=== PATIENT | male | born 1980 | race Caucasian/White ===

== ENCOUNTER 2020-07-27 11:07 | Outpatient (REF) | payer OTHER, SELFPAY | END 2020-07-27 11:08 | disposition home or self-care (01) | LOC: HO.LAB 11:07 | PROVIDERS: Visit Provider Nurse Practitioner Family | DX: K12.2 Cellulitis and abscess of mouth (principal); Z20.822 Contact with and (suspected) exposure to COVID-19; B35.4 Tinea corporis | CPT/HCPCS: 36415; U0003 ==

== ENCOUNTER 2020-09-05 10:35 | Outpatient (REF) | payer OTHER, SELFPAY ==
--- NOTE | ~2020-09-05 | XR_ITS ---
EXAMINATION: XR LUMBOSACRAL SPINE CLINICAL INFORMATION: Lumbago with sciatica, unspecified side COMPARISON: None TECHNIQUE: Three views of the lumbosacral spine. FINDINGS: The vertebral bodies have normal height and alignment. The curvature of the lumbar spine is normal. Qrom-gn-eoyaevcm loss of disc space and mild osteophyte formation at L4-L5. There appears to be focal ossification along the posterior longitudinal ligament at L4-L5. Otherwise, the lumbar disc spaces are maintained. No evidence of pars interarticularis defect or vertebral compression fracture. The anterior and posterior elements are intact. No lytic or osteoblastic lesions. Sacrum and sacroiliac joints are unremarkable. XR/XR lumbar spine 2-3V IMPRESSION: * No fracture or malalignment of the lumbar spine. * Ywxy-pn-syyrrumn disc degenerative change at L4-L5.
--- NOTE | ~2020-09-05 | XR_ITS ---
EXAMINATION: XR KNEE, LEFT CLINICAL INFORMATION: Left knee pain. COMPARISON: None TECHNIQUE: Four views of the left knee. FINDINGS: No specific source of pain is detected. Bones, joints and soft tissues are unremarkable. No arthritic deformity. No knee joint effusion or focal soft tissue swelling. XR/XR knee LT 4V IMPRESSION: Normal left knee.
== END 2020-09-05 10:36 | disposition home or self-care (01) ==
LOC: HO.HMGCX 10:35
PROVIDERS: PCP Nurse Practitioner Family; Visit Provider Nurse Practitioner Family
DX: M54.40 Lumbago with sciatica, unspecified side (principal); M25.562 Pain in left knee
CPT/HCPCS: 72100; 73564

== ENCOUNTER 2021-07-17 18:51 | Outpatient (REF) | payer OTHER, SELFPAY ==
[2021-07-17 18:58] LABS: Appearance Urine CLEAR; Color Urine YELLOW; Glucose Urine UA NEG (NEG); Leukocyte Esterase Urine NEG (NEG); Nitrite Urine NEG (NEG); Urine Blood NEG (NEG); Urine Ketones NEG (NEG); Urine Protein NEG (NEG-TRACE)
== END 2021-07-17 18:52 | disposition home or self-care (01) ==
LOC: HO.LNP 18:51
PROVIDERS: Visit Provider Nurse Practitioner Family
DX: R10.9 Unspecified abdominal pain (principal)
CPT/HCPCS: 81003

== ENCOUNTER 2021-07-24 06:48 | Outpatient (REF) | payer OTHER, SELFPAY ==
[2021-07-24 11:53] LABS: Alanine Aminotransferase 35 U/L (0-40); Albumin Level 4.5 g/dL (3.5-5.0); Alkaline Phosphatase 40 U/L (39-117); Anion Gap 11 (12-20); Aspartate Amino Transferase 25 U/L (5-37); Bilirubin Total 0.6 mg/dL (0.0-1.0); Blood Urea Nitrogen 10 mg/dL (9-16); Calcium 9.7 mg/dL (8.4-10.2); Carbon Dioxide 29 mmol/L (22-29); Chloride 103 mmol/L (96-108); Cholesterol 191 mg/dL; Estimated Glomerular Filt Rate > 60; Glucose Fasting 98 mg/dL (60-99); HDL Cholesterol 56 mg/dL; LDL Cholesterol Calculated 113 mg/dl; Potassium 3.9 mmol/L (3.3-5.1); Sodium 139 mmol/L (135-145); Total Protein 7.7 g/dL (6.5-8.0); Triglycerides 112 mg/dL
[2021-07-24 12:00] LABS: TSH reflex Free T4 2.78 uIU/mL (0.32-4.0)
== END 2021-07-24 06:49 | disposition home or self-care (01) ==
LOC: HO.HMGCLDS 06:48
PROVIDERS: PCP Nurse Practitioner Family; Visit Provider Nurse Practitioner Family
DX: Z00.00 Encounter for general adult medical examination without abnormal findings (principal)
CPT/HCPCS: 36415; 80053; 80061; 84443

== ENCOUNTER 2021-09-04 11:22 | Outpatient (REF) | payer OTHER, SELFPAY ==
--- NOTE | ~2021-09-04 | US_ITS ---
EXAMINATION: US RETROPERITONEAL COMPLETE (RENAL) CLINICAL INFORMATION: Flank pain. COMPARISON: None TECHNIQUE: Real-time imaging of the kidneys and bladder. FINDINGS: RIGHT KIDNEY: 12.0 x 6.6 x 6.7 cm (SAG x AP x TRV). The kidney is normal in size, contour, and echogenicity. Renal cortical thickness is normal. There are 2 cysts measuring 1.5 x 1.2 x 1.5 cm in the midpole and 1.8 x 1.7 x 2.7 cm in the lower pole. No renal calculi or hydronephrosis. LEFT KIDNEY: 12.5 x 7.4 x 7.8 cm (SAG x AP x TRV). The kidney is normal in size, contour, and echogenicity. Renal cortical thickness is normal. There are 2 cysts measuring 1.5 x 1 x 1 cm in the midpole and 2.4 x 1.6 x 1.8 cm in the lower pole. There are 2 echogenic densities with twinkle artifact in the midpole suggestive of stones measuring 4 x 6 x 2 mm and 5 x 3 x 4 mm. No hydronephrosis. BLADDER: Well distended. No stones mass or wall thickening is seen. Bilateral ureteral jets are demonstrated. Prevoid bladder volume is 719 mL. Postvoid bladder volume is 77.8 mL. The prostate gland measures 3.1 x 5.3 x 3.6 cm, volume 31 mL. US/US retroperitoneal comp IMPRESSION: Left renal stones. Bilateral renal cysts. Slightly enlarged prostate gland. Small 78 mL post void bladder residual.
== END 2021-09-04 11:23 | disposition home or self-care (01) ==
LOC: HO.HMGCX 11:22
PROVIDERS: PCP Nurse Practitioner Family; Visit Provider Nurse Practitioner Family
DX: R10.9 Unspecified abdominal pain (principal)
CPT/HCPCS: 76770

== ENCOUNTER 2021-09-19 07:33 | Outpatient (REF) | payer OTHER, SELFPAY ==
[2021-09-19 12:37] LABS: Prostate Specific Antigen 0.69 ng/mL (<0.05-4.0)
== END 2021-09-19 07:34 | disposition home or self-care (01) ==
LOC: HO.HMGCLDS 07:33
PROVIDERS: Visit Provider Nurse Practitioner Family
DX: N40.0 Benign prostatic hyperplasia without lower urinary tract symptoms (principal); Z12.5 Encounter for screening for malignant neoplasm of prostate
CPT/HCPCS: 36415; 84153

== ENCOUNTER 2021-10-11 14:23 | Outpatient (AMB) | payer OTHER, SELFPAY ==
--- NOTE | 2021-10-11 14:27 | A.OFFVIS_ITS ---
Intake Intake Visit Reasons: BPH, Renal Cysts, Kidney Stone Intake Note: patient is present for follow up Accompanied by: Self / Same As Patient Allergies shellfish derived [SHELLFISH DERIVED] Allergy (Unknown, Verified 09/11/23 11:23) SWELLING, DIFF BREATHING bupropion [From Wellbutrin] Adverse Reaction (Severe, Verified 09/11/23 11:23) Anxiety Bee stings Allergy (Unknown, Uncoded 09/25/22 17:13) throat swelling ENVIRONMENTAL Allergy (Unknown, Uncoded 09/25/22 17:13) ASTHMA Seasonal Allergy (Unknown, Uncoded 09/25/22 17:13) unknown HPI HPI Comments History of Present Illness Details Antonio is a pleasant male. He is seen for the following urologic conditions - lower urinary tract symptoms - renal stones - renal cysts Lower urinary tract symptoms Longstanding buspirone [facility] Medical History Back pain of lumbosacral region with sciatica DDD (degenerative disc disease), lumbar Hemorrhoids that prolapse with straining and require manual replacement back inside anal canal Surgical History History of inguinal hernia repair Hx of removal of neck cyst S/P lumbar microdiscectomy Family History Father Asthma Mother Eye cancer Daughter No problems noted. Social History Housing: House Alcohol intake: current Patient Tobacco Use Status: Never used Tobacco e-Cigarette/Vaping Use: Never Used Second Hand Smoke Exposure: No service: No Current occupational status: employed Current occupation: [employer] Current occupational exposures/hazards: No Cognitive needs: No Hearing needs: No Vision needs: No Review of Systems Const Denies chills and Denies fever(s) Card Reports no additional complaints and Denies syncope Resp Denies cough GI Denies abdominal pain and Denies heartburn Reports as per HPI and Denies change in libido Neuro Denies syncope Psych Denies change in libido Endo Denies change in libido Physical Exam Const General: cooperative, healthy appearing, comfortable and no acute distress Orientation/consciousness: patient oriented x3 HEENT Face and sinus: Yes normal facial exam Mouth: moist mucous membranes Neck Neck: Yes normal visual inspection, Yes full ROM and Yes trachea midline Chest Chest palpation & inspection: normal inspection of the chest Resp Effort & Inspection: normal respiratory effort, able to speak in complete sentences and no respiratory distress GI Inspection: Yes normal to inspection Back/Spine/Pelvis Cervical Spine: normal cervical lordosis Thoracic/Lumbar Spine: thoracic and lumbar spine normal to inspection Skin General skin exam: no rashes or lesions noted Neuro General: patient oriented x3, gait normal, tone normal and moves all extremities Extrem General: Yes normal to inspection and Yes capillary refill normal Office Procedures Post Void Residual Post Residual Void Post Void Residual (PVR): 0 [id number] Void Residual by ultrasound Results AMB Urinalysis, Automated UA Leukoctes 0 Estelle/uL Last Edit by Jose Aguero on 10/11/21 14:44 UA Nitrite Negative Last Edit by Jose Aguero on 10/11/21 14:44 UA Urobilinogen 0.2 mg/dL Last Edit by Jose Aguero on 10/11/21 14:44 UA Protein 0 mg/dL Last Edit by Jose Aguero on 10/11/21 14:44 UA pH 6.0 Last Edit by Jose Aguero on 10/11/21 14:44 UA Blood 0 Dylon/uL Last Edit by Jose Aguero on 10/11/21 14:44 UA Specific [place] 1.030 Last Edit by Jose Aguero on 10/11/21 14:44 UA Ketone Negative Last Edit by Jose Aguero on 10/11/21 14:44 UA Bilirubin 0 mg/dL Last Edit by Jose Aguero on 10/11/21 14:44 UA Glucose 0 mg/dL Last Edit by Jose Aguero on 10/11/21 14:44 Results Reviewed Results Reviewed: Laboratory Last Values Urine pH (Auto) 6.0 10/11/21 14:32 Specific [place] (Auto) 1.030 10/11/21 14:32 Urine Protein (Auto) 0 mg/dL 10/11/21 14:32 Glucose (UA)(Auto) 0 mg/dL 10/11/21 14:32 Urine Ketones (Auto) Negative 10/11/21 14:32 Urine Blood (Auto) 0 Dylon/uL 10/11/21 14:32 Urine Nitrite (Auto) Negative 10/11/21 14:32 Urine Bilirubin (Auto) 0 mg/dL 10/11/21 14:32 Urine Urobilinogen (Auto) 0.2 mg/dL 10/11/21 14:32 Leukocyte Esterase (Auto) 0 Estelle/uL 10/11/21 14:32 Assessment & Plan Assessment & Plan (1) Kidney stones: Code(s): N20.0 - Calculus of kidney Plan 12m f/u Orders: Orders AMB Urinalysis Automated 10/11/21 Z13.9 - Encounter for screening, unspecified AMB Post Void Residual by ultrasound 10/11/21 N20.0 - Calculus of kidney US renal BI 1 Year N20.0 - Calculus of kidney Patient Instructions: Imaging studies, laboratory and physical exam results were discussed and reviewed in detail. No major barriers to patient understanding were identified. An opportunity to ask questions regarding the treatment plan was provided. All questions were answered. The patient expressed understanding and agreement with the above treatment plan. The patient is aware they should contact our office by phone for worsening of their current condition or the appearance of new urologic symptoms. Compliance is encouraged with any medications and followup testing that is ordered. It is a privilege to participate in the urologic care of your patient. If you have any questions or concerns regarding treatment for the above conditions, or other urologic issues, please do not hesitate to contact me. The office telephone contact is [phone]. This note is constructed using voice recognition software. While every effort has been made to ensure accuracy custom dressmaker errors may have been included. Yours sincerely, Dr Major Vanessa MD, [facility] - Urology Providers of Expert, Compassionate Care for the Genitourinary System Coding Level of Care Code Est Pt Level 3 (82623) Diagnoses Kidney stones N20.0 CPT Codes Post Residual Void - PVR CPT Code: 98084-Lrka Void Residual by ultrasound ([id number])
== END 2021-10-11 15:28 | disposition home or self-care (01) ==
PROVIDERS: PCP Nurse Practitioner Family; Visit Provider Urology
DX: N20.0 Calculus of kidney (principal)
CPT/HCPCS: 99499

== ENCOUNTER → 2021-10-11 14:23 | Outpatient (BNVA) | payer OTHER, SELFPAY | PROVIDERS: PCP Internal Medicine; Visit Provider Urology | DX: Z13.89 Encounter for screening for other disorder (principal) | CPT/HCPCS: 51798 ==

== ENCOUNTER 2021-10-24 09:19 | Outpatient (REF) | payer OTHER, SELFPAY ==
--- NOTE | ~2021-10-24 | XR_ITS ---
EXAMINATION: XR CHEST CLINICAL INFORMATION: Localized swelling, mass and lump of the trunk COMPARISON: Previous chest CT November 2013 TECHNIQUE: 2 views of the chest were obtained. FINDINGS: The cardiac and mediastinal contours are stable. There is a 4 mm nodule at the left lung base in the lateral costophrenic sulcus. When compared with previous CT this is probably stable. The lungs are otherwise clear. There is no pleural effusion or pneumothorax. The lungs are otherwise clear. There is no pleural effusion or pneumothorax. Bony structures are unremarkable. XR/XR chest 2V IMPRESSION: No evidence for acute disease in the chest. 4 mm left base pulmonary nodule probably unchanged from previous chest CT.
== END 2021-10-24 09:20 | disposition home or self-care (01) ==
LOC: HO.HMGCX 09:19
PROVIDERS: Visit Provider Internal Medicine
DX: R22.2 Localized swelling, mass and lump, trunk (principal); K64.9 Unspecified hemorrhoids
CPT/HCPCS: 71046

== ENCOUNTER → 2021-11-27 10:53 | Outpatient (BNVA) | payer OTHER, SELFPAY | PROVIDERS: PCP Nurse Practitioner Family; Referring Provider Internal Medicine; Visit Provider Surgery | DX: K64.4 Residual hemorrhoidal skin tags (principal); K64.8 Other hemorrhoids | CPT/HCPCS: 46600 ==

== ENCOUNTER 2022-01-10 09:09 | Emergency (ER) | payer OTHER, SELFPAY ==
--- NOTE | ~2022-01-10 | XR_ITS ---
EXAMINATION: XR LUMBOSACRAL SPINE CLINICAL INFORMATION: Low back pain status post fall. COMPARISON: 09/05/2020 lumbar spine radiographs. TECHNIQUE: Three views of the lumbosacral spine. FINDINGS: There is normal lumbar lordosis and spinal alignment. Mild degenerative disc disease is seen at L4-L5 and L5-S1. The vertebral bodies are intact. The soft tissues are unremarkable. XR/XR lumbar spine 2-3V IMPRESSION: L4-L5 and L5-S1 mild degenerative disc disease. No acute abnormality or significant change.
[2022-01-10 09:34] VITALS: BP 147/95; PULSE 88; RESP 18; TEMP 36.3; O2SAT 98; BMI 33.0
--- NOTE | 2022-01-10 10:34 | ED_ITS ---
HPI - Fall General Chief Complaint: Fall Stated Complaint: Back & R Hip Injury at Work 01/10/22 Time Seen by Provider: 01/10/22 10:33 Source: patient Mode of arrival: ambulatory Limitations: no limitations History of Present Illness HPI Narrative: 41 yo male healthy here with reports of lower back pain after a mechanical fall today while working. Patient tells me he slipped and fall landing on his lower back and right buttocks. Since then he has had pain which radiates down the right leg. There is some intermittent numbness and tingling. He denies any weakness, fevers, chills, saddle anesthesia, bowel or bladder incontinence. Related Data Home Medications Medication Instructions Recorded Confirmed albuterol sulfate 90 mcg/actuation 2 puff inhalation Q4-6H PRN 08/23/20 12/05/21 aerosol inhaler (ProAir HFA) cetirizine 10 mg tablet (Zyrtec) 20 mg PO DAILY PRN 08/23/20 12/05/21 Previous Rx's Medication Instructions Recorded cyclobenzaprine 10 mg tablet 10 mg PO BEDTIME PRN muscle spasm 08/23/20 30 days #30 tabs lisinopril 10 mg tablet 10 mg PO DAILY #30 tabs 10/09/21 diclofenac sodium 75 mg 75 mg PO BID PRN pain 30 days #60 11/26/21 tablet,delayed release tabs citalopram 20 mg tablet 20 mg PO DAILY 30 days #30 tabs 12/05/21 buspirone 7.5 mg tablet 7.5 mg PO BID 30 days #60 tabs 12/31/21 cyclobenzaprine 10 mg tablet 10 mg PO TID PRN muscle spasm #14 01/10/22 tabs lidocaine 5 % topical patch 1 patch topical DAILY #15 ea 01/10/22 (Lidoderm) naproxen 500 mg tablet 500 mg PO BID PRN pain #20 tabs 01/10/22 Allergies Allergy/AdvReac Type Severity Reaction Status Date / Time shellfish derived Allergy Unknown SWELLING, Verified 12/05/21 11:53 [SHELLFISH DERIVED] DIFF BREATHING bupropion [From Wellbutrin] AdvReac Severe Anxiety Verified 12/05/21 11:53 Bee stings Allergy Unknown throat Uncoded 12/05/21 11:53 swelling ENVIRONMENTAL Allergy Unknown ASTHMA Uncoded 12/05/21 11:53 Seasonal Allergy Unknown unknown Uncoded 12/05/21 11:53 Review of Systems Review of Systems: Yes all other systems are reviewed and are negative Constitutional: Constitutional: Reports no additional constitutional complaints, Denies body ache(s), Denies chills, Denies fever(s), Denies headache(s) and Denies weakness Eyes: Eyes: Reports no additional eye complaints and Denies change in vision ENT: Reports system reviewed and no additional complaints, except as documented, Denies dizziness, Denies headache(s), Denies nasal congestion, Denies nasal discharge and Denies neck pain Cardiovascular: Cardiovascular: Reports no additional cardiovascular compl aints, Denies chest pain, Denies leg edema and Denies dyspnea Respiratory: Respiratory: Reports no additional respiratory complaints, Denies cough and Denies dyspnea Gastrointestinal: Gastrointestinal: Reports no additional gastrointestinal complaints, Denies abdominal pain, Denies diarrhea, Denies nausea and Denies vomiting Genitourinary: Genitourinary: Denies urinary incontinence Musculoskeletal: Musculoskeletal: Reports no additional musculoskeletal complaints, Reports back pain, Denies arthralgias, Denies joint swelling, Denies neck pain, Reports numbness, Reports radiating pain into limb and Reports tingling Integumentary/Breasts: Skin/Breast: Reports system reviewed and no additional complaints, except as docu and Denies rash Neurologic: Reports system reviewed and no additional complaints, except as documented, Denies Abnormal speech present, Denies dizziness, Denies headache(s), Reports numbness, Reports tingling and Denies weakness PMFSH Past Medical History Attestation statement: The following information was validated with the patient. Source: old records reviewed and nursing notes reviewed Medical History DDD (degenerative disc disease), lumbar Surgical History History of inguinal hernia repair Hx of removal of neck cyst Family History Family History Father Asthma Mother Eye cancer Daughter No problems noted. Social History Social History Housing: House Alcohol intake: current Patient Tobacco Use Status: Never used Tobacco e-Cigarette/Vaping Use: Never Used Second Hand Smoke Exposure: No Advance Directives: No Advance Directives Information Provided: Yes service: No Current occupational status: employed Current occupation: [employer] Current occupational exposures/hazards: No Cognitive needs: No Hearing needs: No Vision needs: No Physical Exam Vital Signs: Vital Signs: Last Vital Signs Temp 97.4 F 01/10/22 09:34 Pulse 88 01/10/22 09:34 Resp 18 01/10/22 09:34 BP 147/95 H 01/10/22 09:34 Pulse Ox 98 01/10/22 09:34 O2 Del Method 01/10/22 09:34 BMI result Body Mass Index 33.0 Const: General: cooperative, healthy appearing, comfortable and no acute distress Orientation/consciousness: patient oriented x3 Limitations: no limitations HEENT: Head: Yes normal to inspection Ears: hearing grossly normal bilaterally General nose exam: Normal external nose present Face and sinus: Yes normal facial exam Mouth: Normal oral and palatal mucosa present Throat: Yes posterior oropharynx normal Eyes: General: appearance normal, both eyes and all related structures Pupils: Equal, round and reactive pupils present Neck: Neck: Yes normal visual inspection Chest: Chest palpation & inspection: normal inspection of the chest Resp: Effort & Inspection: normal respiratory effort Auscultation: clear to auscultation bilaterally Cardio: Rate: regular rate Rhythm: regular rhythm Peripheral pulses: Peripheral pulses 2+ throughout GI: Inspection: Yes normal to inspection Palpation (GI): Soft to palpation and nontender Auscultation: normal bowel sounds Back/Spine/Pelvis: Other: There is tenderness to the midline lumbar spine with no step-offs or deformities. Thoracic/Lumbar Spine: thoracic and lumbar spine normal to inspection Skin: General skin exam: no rashes or lesions noted Neuro: General: patient oriented x3, no focal motor deficits and normal sensation to monofilament Cranial nerves: Yes CN's II-XII intact bilaterally, Yes Equal, round and reactive pupils present, Yes Bilaterally intact EOM present, Yes Nystagmus not present, Yes Normal facial strength present and Yes Midline tongue present Cognition (Neuro): normal cognition Speech: No Abnormal speech present Gait exam (Neuro): Normal gait present Motor exam (neuro): 5/5 motor strength present throughout Sensory Exam: Normal double simultaneous stimulation for sensation Deep tendon reflexes (DTR's): Right patellar reflex intensity grade: 2+ and Left patellar reflex intensity grade: 2+ Extrem: General: Yes normal to inspection Course Course Course Narrative: X-ray show mild degenerative changes. Patient referred to were connection to follow-up. Recommend NSAID, low-dose muscle relaxant, medicated patches. Recommended no heavy lifting or bending. Patient should follow-up for further evaluation and possible imaging. He should return here for any incontinence, weakness, saddle anesthesia. Reviewed worrisome signs and symptoms of when to return to the emergency department. Comfortable discharge home. MDM - Fall MDM Narrative Medical decision making narrative: 41-year-old male here with reports of low back pain after mechanical fall at work with radiation down the right lower leg with some intermittent numbness and tingling. Normal neuro exam. Will check x-rays Medical Records Attestation: I reviewed the patient's medical records. Lab Data Attestation: I reviewed the patient's lab results. Imaging Data lumbar x-ray: Attestation: I personally reviewed and interpreted this imaging study as follows: Radiologist's impression: FINDINGS: There is normal lumbar lordosis and spinal alignment. Mild degenerative disc disease is seen at L4-L5 and L5-S1. The vertebral bodies are intact. The soft tissues are unremarkable. XR/XR lumbar spine 2-3V IMPRESSION: L4-L5 and L5-S1 mild degenerative disc disease. No acute abnormality or significant change. Discharge Plan Discharge Clinical Impression: Lumbar strain, Acute lumbar radiculopathy Patient Disposition: Home, Self-Care Instructions: Acute Low Back Pain (ED), Lumbar Radiculopathy (ED) Additional Instructions: Heat or ice Gentle stretching No heavy lifting or bending Follow-up with work connection of [id number] Prescriptions: New cyclobenzaprine 10 mg tablet 10 mg PO TID PRN (Reason: muscle spasm) Qty: 14 0RF naproxen 500 mg tablet 500 mg PO BID PRN (Reason: pain) Qty: 20 0RF lidocaine [Lidoderm] 5 % adhesive patch,medicated 1 patch topical DAILY Qty: 15 0RF Rx Instructions: leave on most painful area for up to 12 hrs No Action lisinopril 10 mg tablet 10 mg PO DAILY Qty: 30 4RF diclofenac sodium 75 mg tablet,delayed release (DR/EC) 75 mg PO BID PRN (Reason: pain) 30 Days Qty: 60 2RF buspirone 7.5 mg tablet 7.5 mg PO BID 30 Days Qty: 60 2RF cetirizine [Zyrtec] 10 mg tablet 20 mg PO DAILY PRN albuterol sulfate [ProAir HFA] 90 mcg/actuation HFA aerosol inhaler 2 puff inhalation Q4-6H PRN cyclobenzaprine 10 mg tablet 10 mg PO BEDTIME PRN (Reason: muscle spasm) 30 Days Qty: 30 0RF citalopram 20 mg tablet 20 mg PO DAILY 30 Days Qty: 30 2RF Referrals: Rome Morrell, DAMAGE PREVENTION COORDINATOR-BC [Primary Care Provider] - Stand Alone Forms: Work/School Release Interventions: ED Discharge Assessment Last Done: 01/10/22 11:00 Discharge Date/Time: 01/10/22 11:01
== END 2022-01-10 11:01 | disposition home or self-care (01) ==
PROVIDERS: Emergency Provider Emergency Medicine; PCP Nurse Practitioner Family
DX: S39.012A Strain of muscle, fascia and tendon of lower back, initial encounter (principal); M54.16 Radiculopathy, lumbar region; W01.0XXA Fall on same level from slipping, tripping and stumbling without subsequent striking against object, initial encounter; Y93.9 Activity, unspecified; Y92.9 Unspecified place or not applicable; Y99.0 Civilian activity done for income or pay; Z79.899 Other long term (current) drug therapy
CPT/HCPCS: 72100; 99283

== ENCOUNTER → 2022-01-11 10:40 | Outpatient (BNVA) | payer OTHER, SELFPAY | PROVIDERS: PCP Nurse Practitioner Family; Visit Provider Physician Assistant Medical | DX: M54.31 Sciatica, right side (principal); M51.27 Other intervertebral disc displacement, lumbosacral region | CPT/HCPCS: 99203 ==

== ENCOUNTER → 2022-01-15 11:12 | Outpatient (BNVA) | payer OTHER, SELFPAY | PROVIDERS: PCP Nurse Practitioner Family; Visit Provider Internal Medicine | DX: S46.912A Strain of unspecified muscle, fascia and tendon at shoulder and upper arm level, left arm, initial encounter (principal); S29.011A Strain of muscle and tendon of front wall of thorax, initial encounter; W17.89XA Other fall from one level to another, initial encounter; M54.31 Sciatica, right side | CPT/HCPCS: 99214 ==

== ENCOUNTER 2022-01-18 18:16 | Outpatient (REF) | payer OTHER, SELFPAY ==
--- NOTE | ~2022-01-18 | MR_ITS ---
EXAMINATION: MR LUMBAR SPINE WITHOUT CONTRAST CLINICAL INFORMATION: 41-year-old with complaints of low back pain radiating to the right leg, with numbness. History of fall from ladder. COMPARISON: 01/10/2022 x-rays. TECHNIQUE: MRI of the lumbar spine was obtained using routine sequences without contrast. FINDINGS: Coronal Alignment: Normal. Sagittal Alignment: Normal. Lumbosacral Junction: Normal. Five nonrib-bearing lumbar-type vertebral bodies. Vertebral Bodies: Very slight loss of height involving the anterior margins of the T11 and T12 vertebral bodies with otherwise normal vertebral body heights throughout the lumbar spine. No associated kyphosis. Disc Spaces and Endplates: Moderate disc space height loss and disc desiccation at L4-L5 and [id number] disc space height loss with disc desiccation at L5-S1. Remaining lumbar intervertebral discs demonstrate normal height and signal. Small Schmorl's nodes are seen at the levels between T10-T11 and L1-L2 inclusive. Spinal Canal: No abnormal developmental findings. Bone Marrow: No significant marrow-replacing process or bone marrow edema aside from minimal type I edematous degenerative endplate changes at L5-S1. Conus Medullaris: Terminates at L1-L2. Morphology and signal is normal. Intradural Nerve Roots: Within normal limits. L5-S1: There is a central to right subarticular extruded disc herniation with mass effect on the right side of the dural sac and effacement of the right subarticular zone exerting mass effect upon and posterior displacement of the traversing right S1 nerve root. This measures 1.4 cm greatest craniocaudal dimension with maximum transverse dimension at the base of 1.5 cm. Maximum AP dimension is 0.9 cm. There is associated moderate central canal compromise and severe right subarticular recess compromise. There is mild right-sided facet arthrosis. Mild bilateral neural foraminal stenosis is noted without definite exiting neural impingement. L4-L5: There is a central extruded disc herniation with slight caudal migration with minimal indentation of the ventral thecal sac centrally without definite neural impingement. Disc herniation probably contacts the origin of the left L5 nerve root sleeve. No significant canal stenosis. No significant facet arthrosis or neural foraminal stenosis. The remaining lumbar levels demonstrate no significant disc bulge or herniation and no significant facet arthrosis, canal or neural foraminal stenosis. Note is made of a right paramedian disc herniation at T12-L1 without spinal cord impingement. Paraspinal/Retroperitoneal: The paravertebral soft tissues appear grossly unremarkable. There are multiple cystic structures arising in both kidneys, which were identified on ultrasound of 09/05/2021 with the largest of these on the left at 2.2 cm without significant increase in size and on the right at 2.7 cm without significant increase in size. MR/MR lumbar spine wo con IMPRESSION: 1. Discogenic degenerative changes at L4-L5 and L5-S1, as discussed above, with a large central to right subarticular extruded disc herniation at L5-S1 impinging on the traversing right S1 nerve root and exerting mass effect on the dural sac asymmetric to the right, as described above. Small central extruded disc herniation at L4-L5 noted. 2. Mild facet arthrosis on the right at L5-S1 with mild bilateral neural foraminal stenosis at this level without exiting neural impingement. 3. Small right paramedian disc herniation at T12-L1 without cord impingement. 4. Multilevel thoracolumbar Schmorl's nodes with minimal anterior wedging of the T11 and T12 vertebral bodies, which are findings that can be associated with Scheuermann's disease, but there is no associated thoracolumbar kyphosis. 5. Multiple bilateral renal cysts which were identified on previous ultrasound of 09/05/2021, as described above.
== END 2022-01-18 18:17 | disposition home or self-care (01) ==
LOC: HO.MRI 18:16
PROVIDERS: Visit Provider Internal Medicine
DX: M54.50 Low back pain, unspecified (principal); R20.0 Anesthesia of skin; Z91.81 History of falling
CPT/HCPCS: 72148

== ENCOUNTER → 2022-01-23 15:24 | Outpatient (BNVA) | payer OTHER, SELFPAY | PROVIDERS: PCP Nurse Practitioner Family; Visit Provider Internal Medicine | DX: M51.27 Other intervertebral disc displacement, lumbosacral region (principal) | CPT/HCPCS: 99213 ==

== ENCOUNTER → 2022-01-29 07:57 | Outpatient (BNVA) | payer OTHER, SELFPAY | PROVIDERS: PCP Nurse Practitioner Family; Visit Provider Internal Medicine | DX: M54.41 Lumbago with sciatica, right side (principal); M51.27 Other intervertebral disc displacement, lumbosacral region | CPT/HCPCS: 99213 ==

== ENCOUNTER → 2022-02-05 07:59 | Outpatient (BNVA) | payer OTHER, SELFPAY | PROVIDERS: PCP Nurse Practitioner Family; Visit Provider Internal Medicine | DX: M54.41 Lumbago with sciatica, right side (principal); M51.27 Other intervertebral disc displacement, lumbosacral region | CPT/HCPCS: 99213 ==

== ENCOUNTER 2022-02-09 11:00 | Outpatient (RCR) | payer OTHER, SELFPAY ==
--- NOTE | 2022-01-18 09:26 | MHC.PT.EP ---
[facility] Office [place] Office [employer] Office [address] Zechariah Baum [address] [phone] F: [phone] F: [phone] F: [phone] F: [phone] Physical Therapy Plan of Care Date of Evaluation: Date of Surgery: n/a Diagnosis: Low back pain, R sided Sciatica Assessment: Patient is a 41 year old R handed male who presents with s/s consistent with low back pain, R sided sciatica. He works with daily job demands including [employer]. Patient past medical history is fairly unremarkable but does include some low back pain. Current impairments include pain, posture, ROM, strength, activity tolerance and functional mobility. Functional limitations include decreased ability to sit, transfer, sleep, bend, squat and dress. Patient is motivated with good rehab potential. Skilled PT will address impairments and functional limitations in order to achieve goals. Frequency and Duration: The patient will be seen 2x/week for 5 weeks Short Term Goals: I with HEP - 2 weeks centralized s/s - 2 weeks Demo understanding of centralization - 2 weeks Survey Research Teacher Goals: Max pain - 2/10 with all daily activities - 5 weeks restore full rotation - 5 weeks return to all previous activities - 5 weeks Treatment Plan: Modalities to reduce pain, spasms and effusion. Manual therapy to restore motion and function. Therapeutic exercise to improve strength and flexibility. Neuromuscular re-education for posture and balance. Therapeutic activities to return to functional activities of daily living. Electronically signed by: Justin Fernandez, PT Please sign and return to therapist. Thank you for your referral.
--- NOTE | 2022-04-12 11:35 | MHC.PT.DC ---
[facility] [place] [facility] [place] [facility] [place] Office [address] Zechariah Baum [address] [phone] F: [phone] F: [phone] F: [phone] F: [phone] Physical Therapy Discharge Report Diagnosis: Low back pain, R sided Sciatica Date of Surgery: n/a Date of Evaluation: 01/18/22 Date of Discharge: 04/07/22 Treatments to Date: 6 Cancellations to Date: No Shows to Date: Discharge Status: Recommend MD Follow-up Discharge Summary: Pt did report peripheralization of s/s after traction, 2 hours after last visit with 2 days of lost sleep. we discussed plan and decided to hold on PT until follow up with MD next week. Electronically signed by: Justin Fernandez, PT Please sign and return to therapist. Thank you for your referral.
== END 2022-04-12 11:35 | disposition home or self-care (01) ==
LOC: HO.PTCHIC 11:00
PROVIDERS: PCP Nurse Practitioner Family; Visit Provider Internal Medicine
DX: M54.32 Sciatica, left side (principal); M54.31 Sciatica, right side; R07.89 Other chest pain; M54.50 Low back pain, unspecified; W19.XXXD Unspecified fall, subsequent encounter
CPT/HCPCS: 97012; 97014; 97110; 97140; 97162

== ENCOUNTER → 2022-02-12 07:58 | Outpatient (BNVA) | payer OTHER, SELFPAY | PROVIDERS: PCP Nurse Practitioner Family; Visit Provider Internal Medicine | DX: M51.17 Intervertebral disc disorders with radiculopathy, lumbosacral region (principal) | CPT/HCPCS: 99213 ==

== ENCOUNTER 2022-09-19 15:30 | Outpatient (REF) | payer OTHER, SELFPAY ==
--- NOTE | ~2022-09-19 | US_ITS ---
EXAMINATION: US RETROPERITONEAL LIMITED (RENAL ONLY) CLINICAL INFORMATION: Calculus of kidney. COMPARISON: Ultrasound kidneys and bladder 09/04/2021. TECHNIQUE: Real-time imaging of the kidneys. FINDINGS: RIGHT KIDNEY: 11.6 x 7.0 x 6.1 cm (SAG x AP x TRV). The kidney is normal in size, contour, and echogenicity. Renal cortical thickness is normal. No renal calculi or hydronephrosis. At the interpolar aspect, a 1.3 cm in maximal diameter anechoic, simple cyst is seen. At the lower pole, a 2.1 cm in maximal diameter anechoic, simple cyst is seen. LEFT KIDNEY: 11.7 x 6.4 x 5.4 cm (SAG x AP x TRV). The kidney is normal in size, contour, and echogenicity. Renal cortical thickness is normal. No hydronephrosis. At the interpolar aspect, a 4 mm nonobstructing calculus is seen, with twinkle artifact. At the interpolar aspect, a 1.3 cm in maximal diameter anechoic, simple cyst is seen. At the lower pole, a 2.5 cm in maximal diameter anechoic, simple cyst is seen. US/US renal BI IMPRESSION: 1. A 4 mm nonobstructing left renal calculus is seen. No right renal calculus is seen. No hydronephrosis is noted bilaterally. 2. There are benign, simple bilateral renal cysts.
== END 2022-09-19 15:31 | disposition home or self-care (01) ==
LOC: HO.HMGCX 15:30
PROVIDERS: PCP Nurse Practitioner Family; Visit Provider Urology
DX: N20.0 Calculus of kidney (principal)
CPT/HCPCS: 76775

== ENCOUNTER → 2022-10-02 13:01 | Outpatient (BNVA) | payer OTHER, SELFPAY | PROVIDERS: PCP Nurse Practitioner Family; Visit Provider Nurse Practitioner Family | DX: Z13.89 Encounter for screening for other disorder (principal) ==

== ENCOUNTER → 2022-10-17 13:02 | Outpatient (REF) | payer OTHER, SELFPAY | LOC: HO.SL 13:02 | PROVIDERS: PCP Nurse Practitioner Family; Visit Provider Nurse Practitioner Family | DX: R40.0 Somnolence (principal); G47.30 Sleep apnea, unspecified; R06.83 Snoring; G47.33 Obstructive sleep apnea (adult) (pediatric) | CPT/HCPCS: 95806 ==

== ENCOUNTER → 2022-11-19 19:30 | Outpatient (REF) | payer OTHER, SELFPAY | LOC: HO.SL 19:30 | PROVIDERS: PCP Nurse Practitioner Family; Visit Provider Nurse Practitioner Family | DX: G47.33 Obstructive sleep apnea (adult) (pediatric) (principal) | CPT/HCPCS: 95811 ==

== ENCOUNTER 2023-06-20 06:13 | Outpatient (REF) | payer OTHER, SELFPAY ==
[2023-06-20 11:50] LABS: MANUAL DIFF FLAG NO
[2023-06-20 12:08] LABS: Basophils Absolute Auto 0.1 X10*3/uL (0.0-0.2); Eosinophils Absolute Auto 0.4 X10*3/uL (0.0-0.4); Hematocrit 44.2 % (42.0-52.0); Hemoglobin 14.7 g/dl (14.0-18.0); Imm Gran Abs Auto 0.04 X10*3/uL (0.00-0.03); Imm Gran Pct Auto 0.5 % (0.0-0.4); Lymphocytes Absolute Auto 1.7 X10*3/uL (1.2-4.9); Lymphocytes Percent Auto 20.5 % (20-40); Mean Corpuscular HGB Conc 33.3 g/dl (31.0-36.0); Mean Corpuscular Hemoglobin 32.5 pg (27.0-33.0); Mean Corpuscular Volume 97.8 fL (80.0-98.0); Monocytes Absolute Auto 0.8 X10*3/uL (0.1-1.2); Monocytes Percent Auto 9.8 % (2-11); Neutrophils Absolute Auto 5.1 x10*3/uL (2.0-8.3); Neutrophils Percent Auto 63.2 % (45-73); Platelet Count 281 X10*3/uL (160-400); Red Blood Count 4.52 X10*6/uL (4.60-5.80); Red Cell Distribution Width 12.2 % (11.0-16.0)
[2023-06-20 12:34] LABS: Alanine Aminotransferase 35 U/L (0-40); Albumin Level 4.1 g/dL (3.5-5.0); Alkaline Phosphatase 42 U/L (39-117); Anion Gap 13 (12-20); Aspartate Amino Transferase 27 U/L (5-37); Bilirubin Total 0.6 mg/dL (0.0-1.0); Blood Urea Nitrogen 18 mg/dL (9-16); Calcium 9.2 mg/dL (8.4-10.2); Carbon Dioxide 25 mmol/L (22-29); Chloride 103 mmol/L (96-108); Cholesterol 191 mg/dL (<200); Estimated Glomerular Filt Rate > 60; Glucose Fasting 112 mg/dL (60-99); HDL Cholesterol 54 mg/dL (>40); LDL Cholesterol Calculated 99 mg/dL (<100); Potassium 3.7 mmol/L (3.3-5.1); Sodium 137 mmol/L (135-145); Total Protein 7.6 g/dL (6.5-8.0); Triglycerides 190 mg/dL (<150)
[2023-06-20 12:54] LABS: TSH reflex Free T4 2.66 uIU/mL (0.32-4.0)
[2023-06-20 13:27] LABS: Appearance Urine Clear; Color Urine Yellow; Glucose Urine UA Negative (Negative); Leukocyte Esterase Urine Negative (Negative); Nitrite Urine Negative (Negative); PH 7.5 (5.0-9.0); Specific Gravity - Urine 1.025 (1.005-1.025); Urine Blood Negative (Negative); Urine Ketones Negative (Negative); Urine Protein Negative (Neg-Trace)
== END 2023-06-20 06:14 | disposition home or self-care (01) ==
LOC: HO.HMGCLDS 06:13
PROVIDERS: PCP Nurse Practitioner Family; Visit Provider Nurse Practitioner Family
DX: Z00.00 Encounter for general adult medical examination without abnormal findings (principal)
CPT/HCPCS: 36415; 80053; 80061; 81003; 84443; 85025

== ENCOUNTER 2023-09-11 10:26 | Outpatient (AMB) | payer OTHER, SELFPAY ==
[2023-09-11 11:21] VITALS: BP 128/86; PULSE 84; TEMP 36.3; O2SAT 96; BMI 37.7
--- NOTE | 2023-09-11 11:21 | AM.OFFWIN_ITS ---
Intake Vital Signs 09/11/23 11:21 Height 5 ft 10 in Weight 263 lb BMI 37.7 BP 128/86 Blood Pressure Location Lt brachial Position Sitting Pulse 84 Pulse Source Pulse Oximeter Temp 97.3 F Temp Source Temporal Artery Scan Pulse Oximetry (%) 96 Oxygen Delivery Method Room Air Intake Visit Reasons: EP coughing up blood Intake Note: pt is here today for coughing up blood started 1 month ago Patient Tobacco Use Status: Never used Tobacco Allergies shellfish derived [SHELLFISH DERIVED] Allergy (Unknown, Verified 09/11/23 11:23) SWELLING, DIFF BREATHING bupropion [From Wellbutrin] Adverse Reaction (Severe, Verified 09/11/23 11:23) Anxiety Bee stings Allergy (Unknown, Uncoded 09/25/22 17:13) throat swelling ENVIRONMENTAL Allergy (Unknown, Uncoded 09/25/22 17:13) ASTHMA Seasonal Allergy (Unknown, Uncoded 09/25/22 17:13) unknown Do you need a note to return to daycare/school/sports/work: Yes HPI HPI Comments History of Present Illness Details 43 male patient who presents to walk in clinic with c/o cough with blood. Reports one episode of spitting out blood. Reports that cough is dry. He wears CPAP mask at night for VIVIANA. Denies fevers, chills, nausea or vomiting. H/o well controlled Asthma. [facility] Medical History Back pain of lumbosacral region with sciatica DDD (degenerative disc disease), lumbar Hemorrhoids that prolapse with straining and require manual replacement back inside anal canal Surgical History History of inguinal hernia repair Hx of removal of neck cyst S/P lumbar microdiscectomy Family History Father Asthma Mother Eye cancer Daughter No problems noted. Social History Housing: House Alcohol intake: current Patient Tobacco Use Status: Never used Tobacco e-Cigarette/Vaping Use: Never Used Second Hand Smoke Exposure: No service: No Current occupational status: employed Current occupation: [employer] Current occupational exposures/hazards: No Cognitive needs: No Hearing needs: No Vision needs: No Physical Exam Vital Signs: Last Vital Signs Temp 97.3 F 09/11/23 11:21 Pulse 84 09/11/23 11:21 BP 128/86 09/11/23 11:21 Pulse Ox 96 09/11/23 11:21 Oxygen Delivery Method Room Air 09/11/23 11:21 BMI result Body Mass Index 37.7 Const General: comfortable and no acute distress Nutritional Appearance: obese HEENT Head: Yes normocephalic and Yes atraumatic Ears: external ears normal and TM's normal bilaterally General nose exam: Normal nasal mucous membranes and turbinates present Face and sinus: Yes sinuses nontender Mouth: moist mucous membranes Throat: Yes posterior oropharynx normal Resp Effort & Inspection: normal respiratory effort and able to speak in complete sentences Auscultation: clear to auscultation bilaterally Cardio Rate: regular rate Rhythm: regular rhythm Assessment & Plan Assessment & Plan (1) Cough in adult: Code(s): R05.9 - Cough, unspecified Plan: - Rest -OTC cough remedies. - Warm fluids with honey Coding Level of Care Code Est Pt Level 2 (02870) Diagnoses Cough in adult R05.9 Time Spent (min) 10
== END 2023-09-11 13:59 | disposition home or self-care (01) ==
PROVIDERS: PCP Nurse Practitioner Family; Visit Provider Nurse Practitioner Family
DX: R05.9 Cough, unspecified (principal)
CPT/HCPCS: 99212

== ENCOUNTER 2023-10-09 09:20 | Outpatient (AMB) | payer OTHER, SELFPAY ==
--- NOTE | 2023-10-09 09:27 | AM.OFFWIN_ITS ---
Intake Vital Signs 10/09/23 09:28 Height 5 ft 10 in Weight 261 lb BMI 37.4 BP 124/70 Blood Pressure Location Rt brachial Position Sitting Pulse 100 Pulse Source Pulse Oximeter Temp 98.3 F Temp Source Oral Pulse Oximetry (%) 97 Oxygen Delivery Method Room Air Intake Visit Reasons: EP Asthma Intake Note: Pt is here c/o asthma flare ups. PT accepts today's results being left on his vm. Patient Tobacco Use Status: Never used Tobacco Allergies shellfish derived [SHELLFISH DERIVED] Allergy (Unknown, Verified 09/11/23 11:23) SWELLING, DIFF BREATHING bupropion [From Wellbutrin] Adverse Reaction (Severe, Verified 09/11/23 11:23) Anxiety Bee stings Allergy (Unknown, Uncoded 09/25/22 17:13) throat swelling ENVIRONMENTAL Allergy (Unknown, Uncoded 09/25/22 17:13) ASTHMA Seasonal Allergy (Unknown, Uncoded 09/25/22 17:13) unknown Do you need a note to return to daycare/school/sports/work: No HPI HPI Comments History of Present Illness Details 43 y/o male patient who presents to walk in clinic with c/o Asthma Exacerbation. C/o SOB, cough and CP with breathing. H/o Asthma, uses Rescue Inhaler and home Neb Tx. [facility] Medical History Back pain of lumbosacral region with sciatica DDD (degenerative disc disease), lumbar Hemorrhoids that prolapse with straining and require manual replacement back inside anal canal Surgical History History of inguinal hernia repair Hx of removal of neck cyst S/P lumbar microdiscectomy Family History Father Asthma Mother Eye cancer Daughter No problems noted. Social History Housing: House Alcohol intake: current Patient Tobacco Use Status: Never used Tobacco e-Cigarette/Vaping Use: Never Used Second Hand Smoke Exposure: No service: No Current occupational status: employed Current occupation: [employer] Current occupational exposures/hazards: No Cognitive needs: No Hearing needs: No Vision needs: No Review of Systems Const All systems reviewed & are unremarkable except as noted in HPI and below Physical Exam Vital Signs: Last Vital Signs Temp 98.3 F 10/09/23 09:28 Pulse 100 10/09/23 09:28 BP 124/70 10/09/23 09:28 Pulse Ox 97 10/09/23 09:28 Oxygen Delivery Method Room Air 10/09/23 09:28 BMI result Body Mass Index 37.4 Const General: comfortable and no acute distress Nutritional Appearance: obese Orientation/consciousness: patient oriented x3 HEENT Head: Yes normocephalic Ears: external ears normal and TM's normal bilaterally Mouth: moist mucous membranes Resp Effort & Inspection: normal respiratory effort, able to speak in complete sentences and Actively coughing Auscultation: no crackles, no rales, rhonchi throughout and wheezes scattered wheezes Cardio Rate: regular rate Rhythm: regular rhythm Neuro General: patient oriented x3 Office Procedures Nebulizer Treatment Nebulizer Treatment 67219-Lhhfaowlz/MDI RX initial, or Nebulizer Subsequent Treatment Office Meds ipratropium 0.5 mg-albuterol 3 mg (2.5 mg base)/3 mL nebulization soln Performing Provider: Pau Acevedo NP Performing Location: [facility] Administered by: Pau Acevedo NP on 10/09/23 09:46 Dose Route Admin Location Dispensed Lot Number Expiration Date [employer] Specialist 3 mL inhalation 3 mL [id number] 04/21/24 0726-6730-59 [facility] Assessment & Plan Assessment & Plan (1) Asthma with acute exacerbation: Code(s): J45.901 - Unspecified asthma with (acute) exacerbation Qualifiers: Asthma persistence: persistent Asthma severity: moderate Qualified Code(s): J45.41 - Moderate persistent asthma with (acute) exacerbation Plan: - Office Duo Neb Tx - Systemic Pred - Refilled Rescue Inhaler. - Started Advair (LABA). - F/U with PCP for Med Tapering. Orders: Orders AMB Nebulizer Treatment Today J45.41 - Moderate persistent asthma with (acute) exacerbation Medications: New albuterol sulfate 2.5 mg (0.5 mL) inhalation Q4-6H PRN 30 ea 0RF bronchospasm J45.41 - Moderate persistent asthma with (acute) exacerbation fluticasone propion-salmeterol 115-21 mcg/actuation (Advair HFA) 2 puffs inhalation BID 12 grams 1RF Asthma J45.41 - Moderate persistent asthma with (acute) exacerbation prednisone 50 mg PO DAILY 5 days 5 tabs 0RF J45.41 - Moderate persistent asthma with (acute) exacerbation Changed From albuterol sulfate 90 mcg/actuation 2 puffs inhalation Q6H PRN 8.5 grams 0RF shortness of breath or wheezing J45.41 - Moderate persistent asthma with (acute) exacerbation To albuterol sulfate 90 mcg/actuation 2 puffs inhalation Q4-6H PRN 8.5 grams 0RF shortness of breath or wheezing J45.41 - Moderate persistent asthma with (acute) exacerbation Coding Level of Care Code Est Pt Level 3 (37677) Diagnoses Moderate persistent asthma with acute exacerbation J45.41 Asthma persistence: persistent Asthma severity: moderate CPT Codes Nebulizer Treatment - Nebulizer Treatment, initial or subsequent: 07679- Nebulizer/MDI RX initial, or Nebulizer Subsequent Treatment ([id number]) Time Spent (min) 15
[2023-10-09 09:28] VITALS: BP 124/70; PULSE 100; TEMP 36.8; O2SAT 97; BMI 37.4
== END 2023-10-09 09:59 | disposition home or self-care (01) ==
PROVIDERS: PCP Nurse Practitioner Family; Visit Provider Nurse Practitioner Family
DX: J45.41 Moderate persistent asthma with (acute) exacerbation (principal)
CPT/HCPCS: 94640; 99213; J7620

== ENCOUNTER 2023-11-07 13:31 | Outpatient (AMB) | payer OTHER, SELFPAY ==
--- NOTE | 2023-11-07 13:34 | MHC.PC.OV ---
Vital Signs 11/07/23 13:37 Height 5 ft 10 in Weight 269 lb BMI 38.6 BP 120/84 Blood Pressure Location Rt brachial Position Sitting Pulse 69 Pulse Source Pulse Oximeter Pulse Oximetry (%) 97 Oxygen Delivery Method Room Air Intake Visit Reasons: PE Intake Note: Patient here for physical exam and would like to talk about knee pain and tail bone pain. last colonoscopy unknown Allergies shellfish derived [SHELLFISH DERIVED] Allergy (Unknown, Verified 11/07/23 13:40) SWELLING, DIFF BREATHING bupropion [From Wellbutrin] Adverse Reaction (Severe, Verified 11/07/23 13:40) Anxiety Bee stings Allergy (Unknown, Uncoded 11/07/23 13:40) throat swelling ENVIRONMENTAL Allergy (Unknown, Uncoded 11/07/23 13:40) ASTHMA Seasonal Allergy (Unknown, Uncoded 11/07/23 13:40) unknown Medication List - Last Reconciled 11/07/23 by Rome Morrell, [facility]- albuterol sulfate 2.5 mg (0.5 mL) inhalation Q4-6H PRN albuterol sulfate 90 mcg/actuation 2 puffs inhalation Q4-6H PRN buspirone 7.5 mg PO BID 90 days cetirizine (Zyrtec) 20 mg PO DAILY PRN citalopram 30 mg (1.5 x 20 mg) PO DAILY fluticasone propion-salmeterol 45-21 mcg/actuation (Advair HFA) 2 puffs inhalation BID lisinopril 10 mg PO DAILY Tobacco use date assessed: 11/07/23 Dental Screening Dental Screen Date: 11/07/23 Did you have a dental visit in the last 12 months?: Yes Did you have a dental problem in the last 6 months where you did not have access to dental care?: No Was dental information given to patient?: Patient has dentist HPI PE HPI Details Pt is here for a PE. Will order labs. Due for colon screen in the near future, will refer to GI. Pt reports weak stream. Will order PSA. Pt reports a small umbilical hernia. He reports that this pops out more sometimes. Pt further reports being able to reduce this and push on the area to relieve discomfort. Pt reports pain to his upper head (parietal region) when coughing. He describes the pain as sharp. Will order head CT, especially with family Hx of brain aneurysm (grandfather). Pt c/o pain to his coccyx. Will order XR. He also reports onychomycosis, will refer to podiatry. [facility] Medical History Back pain of lumbosacral region with sciatica DDD (degenerative disc disease), lumbar Hemorrhoids that prolapse with straining and require manual replacement back inside anal canal Surgical History S/P lumbar microdiscectomy Hx of removal of neck cyst History of inguinal hernia repair Family History Father Asthma Mother Eye cancer Daughter No problems noted. Social History Housing: House Alcohol intake: current Patient Tobacco Use Status: Never used Tobacco e-Cigarette/Vaping Use: Never Used Second Hand Smoke Exposure: No service: No Current occupational status: employed Current occupation: [employer] Current occupational exposures/hazards: No Cognitive needs: No Hearing needs: No Vision needs: No Questionnaire Thrive Questionnaire Date Thrive assessed: 09/25/22 AUDIT C Alcohol Use Questionnaire (AUDIT-C) 1. How often do you have a drink containing alcohol?: 4 or more times a week 2. How many drinks containing alcohol do you have on a typical day when you are drinking?: 1 or 2 3. How often do you have six or more drinks on one occasion?: Never Total Score: 4 Score Reviewed/Action Taken: No PERFECTO-7 AMB Questionnaire PERFECTO-7 Date PERFECTO - 7 assessed: 09/25/22 Source: Developed by Drs. Mack Levi, Neetu Alejandro, Zuhair Berry and colleagues, with an educational leila from [employer]. Review of Systems Const Denies chills and Denies fever(s) Eyes Denies blurry vision ENT Denies vertigo, Denies dizziness and Denies sore throat Card Denies chest pain at rest, Denies chest pain with activity, Denies diaphoresis, Denies dyspnea and Denies dyspnea on exertion Resp Denies cough, Denies dyspnea, Denies dyspnea on exertion and Denies wheezing GI Denies abdominal pain, Denies melena, Denies hematochezia, Denies constipation, Denies diarrhea and Denies loose stools Denies hematuria Musc Denies numbness and Denies tingling Skin/Breast Denies lesions Neuro Denies vertigo, Denies dizziness, Denies numbness and Denies tingling Psych Denies anxiety, Denies depression, Denies homicidal ideation, Denies suicidal ideation and Denies other (substance abuse) Aller/Immun Denies wheezing Physical exam (Primary Care) Vital Signs: Last Vital Signs Pulse 69 11/07/23 13:37 BP 120/84 11/07/23 13:37 Pulse Ox 97 11/07/23 13:37 Oxygen Delivery Method Room Air 11/07/23 13:37 BMI result Body Mass Index 38.6 Tobacco/Smoking Status: Tobacco use Status Tobacco use date assessed 11/07/23 11/07/23 13:43 Patient Tobacco Use Status Never used Tobacco 11/07/23 13:39 e-Cigarette/Vaping Use Never Used 11/07/23 13:39 Thrive Assessment: Date of Thrive Assessment Date Thrive assessed 09/25/22 11/07/23 13:39 Const General: cooperative Nutritional Appearance: obese Orientation/consciousness: patient oriented x3 HENMT Head: Yes normal to inspection, Yes normocephalic and Yes atraumatic Ears: TM's normal bilaterally Eyes General: appearance normal, both eyes and all related structures Alignment and Position: alignment normal and position normal Neck Neck: Yes normal visual inspection and Yes no lymphadenopathy Thyroid: Thyroid normal Resp Effort & Inspection: normal respiratory effort Auscultation: clear to auscultation bilaterally Cardio Rate: regular rate Rhythm: regular rhythm Heart sounds: S1 normal heart sound present, S2 normal heart sound present and no murmurs GI Other: small umbilical hernia noted Palpation (GI): Soft to palpation and nontender Auscultation: normal bowel sounds Male General Exam: Yes normal external exam Penis: normal penis Scrotum: scrotum normal, testes descended bilaterally and no inguinal hernias Testes: no testicular mass Skin Rashes: no rashes Neuro General: patient oriented x3, moves all extremities, no focal motor deficits and deep tendon reflexes 2+ bilaterally Romberg Test: Negative Psych Appearance: grossly normal Mental Status: mental status grossly normal Speech and movement: Normal speech and movement present Affect: normal affect Attitude: cooperative Thought process: Normal thought process present Thought content: Normal thought content present Insight: Good insight present (Psych) Judgement: Good judgement present (Psych) Assessment and Plan Assessment & Plan (1) Physical exam: Code(s): Z00.00 - Encounter for general adult medical examination without abnormal findings Plan: Labs ordered (2) Screening for colon cancer: Code(s): Z12.11 - Encounter for screening for malignant neoplasm of colon Plan: Referred to GI (3) Screening for prostate cancer: Code(s): Z12.5 - Encounter for screening for malignant neoplasm of prostate Plan: PSA ordered (4) Pain in head: Code(s): R51.9 - Headache, unspecified Plan: Head CT ordered (5) Onychomycosis: Code(s): B35.1 - Tinea unguium Plan: referral to podiatry (6) Pain in the coccyx: Code(s): M53.3 - Sacrococcygeal disorders, not elsewhere classified Plan: XR ordered Plan The patient agreed to the use of a ophthalmic medical technologist for this encounter. Scribed for KAVON Weinberg-BC by Nica Gil ophthalmic medical technologist, on 11/07/2023 at 13:45 EST. Orders: Orders TSH reflex Free T4 Today Z00.00 - Encounter for general adult medical examination without abnormal findings Prostate Specific Antigen Scr Today Z12.5 - Encounter for screening for malignant neoplasm of prostate CT head/brain wo IV con Today R51.9 - Headache, unspecified XR sacrum coccyx min 2V Today M53.3 - Sacrococcygeal disorders, not elsewhere classified Complete Blood Count Auto Diff Today Z00.00 - Encounter for general adult medical examination without abnormal findings Comprehensive [place]. Panel Fast Today Z00.00 - Encounter for general adult medical examination without abnormal findings UA CC w/rflx Micro + Cult Today Z00.00 - Encounter for general adult medical examination without abnormal findings Lipid Panel Today Z00.00 - Encounter for general adult medical examination without abnormal findings Referrals Gastroenterology Referral Z12.11 - Encounter for screening for malignant neoplasm of colon Podiatry Referral B35.1 - Tinea unguium Medications: Refilled buspirone 7.5 mg PO BID 90 days 180 tabs 1RF albuterol sulfate 2.5 mg (0.5 mL) inhalation Q4-6H PRN 30 ea 0RF bronchospasm J45.41 - Moderate persistent asthma with (acute) exacerbation Coding Level of Care Code Est Pt Prev Care 40-64y(68435) Diagnoses Physical exam Z00.00 Screening for colon cancer Z12.11 Screening for prostate cancer Z12.5 Pain in head R51.9 Onychomycosis B35.1 Pain in the coccyx M53.3
[2023-11-07 13:37] VITALS: BP 120/84; PULSE 69; O2SAT 97; BMI 38.6
== END 2023-11-07 14:35 | disposition home or self-care (01) ==
PROVIDERS: PCP Nurse Practitioner Family; Visit Provider Nurse Practitioner Family
DX: Z00.00 Encounter for general adult medical examination without abnormal findings (principal); Z12.11 Encounter for screening for malignant neoplasm of colon; Z12.5 Encounter for screening for malignant neoplasm of prostate; R51.9 Headache, unspecified; B35.1 Tinea unguium; M53.3 Sacrococcygeal disorders, not elsewhere classified
CPT/HCPCS: 99396

== ENCOUNTER 2023-12-02 07:42 | Outpatient (REF) | payer OTHER, SELFPAY ==
--- NOTE | ~2023-12-02 | CT_ITS ---
EXAMINATION: CT head/brain wo IV con CLINICAL INFORMATION: Headache COMPARISON: MRI of the brain and orbits with and without contrast 05/09/2015 TECHNIQUE: Contiguous axial imaging was performed from the skull base to vertex without intravenous contrast. Sagittal and coronal reformatted images were obtained. This CT examination was performed using dose optimization techniques as appropriate, variously including the following: * Automated exposure control * Adjustment of mA and/or kV according to patient size (this includes techniques or standardized protocols for targeted exams where dose is matched to indication/reason for exam; i.e. extremities or head) Use of iterative reconstruction technique DLP: 918 mGy-cm FINDINGS: No acute osseous or soft tissue abnormality. Trace ethmoid and maxillary sinus mucosal thickening. The mastoids are clear. There is no evidence of acute intracranial hemorrhage or territorial infarction. No abnormal mass effect or midline shift is seen. Vasquez to white matter differentiation is well preserved. No extra-axial fluid collections are identified. No hydrocephalus. No significant volume loss. There is no abnormal attenuation within the brain parenchyma. Stable small suspected cavernous hemangioma in the intraconal left orbit. CT/CT head/brain wo IV con IMPRESSION: No acute intracranial abnormality including hemorrhage, mass effect, hydrocephalus, or acute territorial edematous infarction.
== END 2023-12-02 07:43 | disposition home or self-care (01) ==
LOC: HO.CT 07:42
PROVIDERS: PCP Nurse Practitioner Family; Visit Provider Nurse Practitioner Family
DX: R51.9 Headache, unspecified (principal)
CPT/HCPCS: 70450